=== PATIENT | female | born 1945 | race Two or more races ===

== ENCOUNTER → 2018-09-11 | Outpatient (CLI) | payer OTHER ==
[~2018-09-11] MED LIST: COZAAR100 MG; METFORMIN HCL500 MG
== END | disposition home or self-care (01) ==
LOC: SONOGRAMA 09:42
DX: E04.1 Nontoxic single thyroid nodule (principal)

== ENCOUNTER 2021-09-30 08:37 | Outpatient (CLI) | payer OTHER | END 2021-09-30 08:51 | disposition home or self-care (01) | LOC: SONOGRAMA 08:37 | PROVIDERS: ATTEND Pathology Anatomic Pathology & Clinical Pathology | DX: E04.2 Nontoxic multinodular goiter (principal) ==

== ENCOUNTER 2024-06-03 13:48 | Outpatient (CLI) | payer OTHER | END 2024-06-03 13:49 | disposition home or self-care (01) | LOC: SONOGRAMA 13:48 | PROVIDERS: ATTEND Pathology Anatomic Pathology | DX: D34 Benign neoplasm of thyroid gland (principal); E07.89 Other specified disorders of thyroid; E05.20 Thyrotoxicosis with toxic multinodular goiter without thyrotoxic crisis or storm ==